=== PATIENT | female | born 1955 | race Caucasian/White ===

== ENCOUNTER 2021-02-23 10:04 | Outpatient (CLI) | payer MEDICARE, SELFPAY ==
--- NOTE | 2021-02-23 10:10 | MM_ITS ---
WS: [id number] SCREENING DIGITAL MAMMOGRAM WITH CAD HISTORY: SCREENING COMPARISON: 03/04/2015 and 03/05/2007 Bilateral CC and MLO views submitted. Computer aided detection analyzed. Breast composition: There are scattered areas of fibroglandular density. No suspicious masses, microc alcifications or architectural distortion. MM/[place] [id number] IMPRESSION: BI-RADS: 1-Negative FOLLOW UP: 1 Year Follow-up
--- NOTE | 2021-02-23 11:28 | USCV_ITS ---
Bev Eva Age: 65 Gender: F : 1955 Exam Date: 02/23/2021 12:05 Ordering Phys: Arielle Terrazas APN Technologist: Yamilet Carlos Exam Location: [facility] [place] Indication: BRUIT OF RIGHT CAROTID ARTERY Risk Factors: Previous Vascular Surgery: Right Brachial BP: / Left Brachial BP: / Right Left Velocity (cm/s) Spectral Plaque Velocity (cm/s) Spectral Plaque Syst/Diast Broadening Syst/Diast Broadening 52.60/ 13.80 Prox CCA 75.20 / 22.30 49.10/ 14.90 Mid CCA 71.80 / 24.80 48.60/ 20.40 Distal CCA 55.00 / 16.80 41.40/ 20.10 Prox ICA 35.30 / 17.70 53.00/ 22.70 Mid ICA 64.60 / 27.80 50.50/ 21.20 Distal ICA 69.70 / 28.60 58.70 ECA 55.00 1.08 ICA/CCA 0.97 Antegrade Vertebral Antegrade 31.00/ 8.50 cm/s 31.60/ 12.50 cm/s Tri Subclavian Bi 59.00 106.0 0 FINDINGS Comparison: none available. No significant elevation of systolic or diastolic velocities. Waveforms are normal. No significant amount of calcified plaque or intimal thickening identified. CONCLUSIONS Normal carotid doppler ultrasound. Dr. Barbara Grant DO (Electronically Signed) Final Date: 23 February 2021 14:29 S
== END 2021-02-23 10:05 | disposition home or self-care (01) ==
PROVIDERS: PCP Nurse Practitioner; Visit Provider Nurse Practitioner
DX: Z12.31 Encounter for screening mammogram for malignant neoplasm of breast (principal); R09.89 Other specified symptoms and signs involving the circulatory and respiratory systems
CPT/HCPCS: 77067; 93880

== ENCOUNTER 2022-08-21 10:05 | Outpatient (CLI) | payer MEDICARE, SELFPAY ==
--- NOTE | 2022-08-21 10:42 | USCV_ITS ---
Bev Eva Age: 67 Gender: F : 1955 Exam Date: 08/21/2022 10:57 Ordering Phys: Kristine Acuña SUPER[employer]OR [employer] Technologist: JOSE RAMON [place] [facility] [place]ication: RT CAROTID BRUIT Risk Factors: Previous Vascular Surgery: Right Brachial BP: / Left Brachial BP: / Right Left Velocity (cm/s) Spectral Plaque Velocity (cm/s) Spectral Plaque Syst/Diast Broadening Syst/Diast Broadening 79.50/ 26.50 Prox CCA 72.60 / 23.10 67.50/ 24.80 Mid CCA 101.70/ 35.70 48.00/ 16.70 Distal CCA 72.30 / 23.90 55.90/ 18.60 Prox ICA 33.40 / 14.50 62.10/ 27.20 Mid ICA 61.80 / 28.40 83.10/ 35.70 Distal ICA 63.20 / 22.00 72.70 ECA 38.20 1.05 ICA/CCA 0.62 Vertebral 34.20/ 11.70 cm/s 37.50/ 16.40 cm/s Subclavian 70.90 82.20 FINDINGS No changes since 2020 CONCLUSIONS Right ICA stenosis <50%. Left ICA stenosis <50%. Normal antegrade Doppler flow noted in the right vertebral artery. Normal antegrade Doppler flow noted in the left vertebral artery. Good Estrella MD (Electronically Signed) Final Date: 21 August 2022 11:58 S
== END 2022-08-21 10:06 | disposition home or self-care (01) ==
LOC: RAD 10:09
PROVIDERS: PCP Nurse Practitioner; Visit Provider Nurse Practitioner Family
DX: R09.89 Other specified symptoms and signs involving the circulatory and respiratory systems (principal); I65.23 Occlusion and stenosis of bilateral carotid arteries
CPT/HCPCS: 93880

== ENCOUNTER 2023-05-29 09:24 | Outpatient (RCR) | payer MEDICARE, SELFPAY | END 2023-06-12 23:59 | disposition home or self-care (01) | LOC: SOT 09:24 | PROVIDERS: PCP Emergency Medicine; Visit Provider Emergency Medicine | DX: S52.612D Displaced fracture of left ulna styloid process, subsequent encounter for closed fracture with routine healing (principal); S52.502D Unspecified fracture of the lower end of left radius, subsequent encounter for closed fracture with routine healing; X58.XXXD Exposure to other specified factors, subsequent encounter | CPT/HCPCS: 97022; 97110; 97140; 97165; 97530 ==

== ENCOUNTER 2023-06-13 06:00 | Outpatient (RCR) | payer MEDICARE, SELFPAY | END 2023-07-11 23:59 | disposition home or self-care (01) | LOC: SOT 06:00 | PROVIDERS: PCP Emergency Medicine; Visit Provider Emergency Medicine | DX: S52.612D Displaced fracture of left ulna styloid process, subsequent encounter for closed fracture with routine healing (principal); S52.502D Unspecified fracture of the lower end of left radius, subsequent encounter for closed fracture with routine healing; X58.XXXD Exposure to other specified factors, subsequent encounter | CPT/HCPCS: 97022; 97110; 97140 ==

== ENCOUNTER 2024-03-25 13:47 | Outpatient (CLI) | payer MEDICARE, SELFPAY ==
--- NOTE | 2024-03-25 13:49 | USCV_ITS ---
Eva Pablo Age: 69 Gender: F : 1955 Exam Date: 03/25/2024 13:56 Ordering Phys: Kristine Acuña [employer] OPERATOR [employer] Technologist: NABEEL Exam Location: [facility] [place] Indication: HISTORY: Lower extremity pain. PROCEDURES: Venous duplex imaging was performed in only the left lower extremity. The following venous structures were evaluated: common femoral vein, profunda vein, proximal portion of the greater saphenous vein, superficial femoral vein, and the popliteal vein. In addition, the posterior tibial and peroneal trunk were evaluated. FINDINGS: No evidence of DVT seen in any vessel visualized at this time. Normal 2-D Doppler and augmentation and compressibility throughout the lower extremity venous structures. Additional imaging through the proximal calf veins also reveals no thrombus. Limited evaluation of the greater saphenous vein is patent with no thrombus. CONCLUSIONS No DVT left lower extremity. Dr. Barbara Grant DO (Electronically Signed) Final Date: 25 March 2024 15:38 S
== END 2024-03-25 13:48 | disposition home or self-care (01) ==
LOC: RAD 13:48
PROVIDERS: PCP Emergency Medicine; Visit Provider Nurse Practitioner Family
DX: M79.669 Pain in unspecified lower leg (principal); L53.9 Erythematous condition, unspecified
CPT/HCPCS: 93971

== ENCOUNTER 2024-03-27 12:56 | Inpatient (IN) | payer MEDICARE, SELFPAY ==
[2024-03-27 14:01] VITALS: BP 104/68; PULSE 71; RESP 17; TEMP 36.6; O2SAT 100; BMI 21.9
[2024-03-27 16:55] LABS: Basophils % 0.5 %; Eosinophils # 0.1 10^3/uL (0.0-0.8); Eosinophils % 1.5 %; Hematocrit 35.8 % (36-47); Lymphocytes % 12.6 %; Mean Corpuscular HGB Conc 33.2 g/dL (30-55); Mean Corpuscular Hemoglobin 29.7 pg (27-33); Mean Corpuscular Volume 89.3 fl (85-98); Mean Platelet Volume 10.2 fL (7.4-10.4); Monocytes # 0.6 10^3/uL (0.2-0.9); Monocytes % 7.8 %; Neutrophils # 6.12 10^3/uL (1.8-7.7); Neutrophils % 76.1 %; Nucleated Red Blood Cells % 0 %; Platelet Count 252 10^3/cmm (157-399); Red Blood Count 4.01 10^6/uL (3.85-5.65); Red Cell Distribution Width 13.3 % (12.1-15.1); White Blood Count 8.04 10^3/uL (3.29-11.43)
[2024-03-27 17:01] LABS: Erythrocyte Sedimentation Rate 8 mm/hr (0-15)
[2024-03-27 17:07] VITALS: BP 125/55; PULSE 65; RESP 17; O2SAT 99
[2024-03-27 17:14] LABS: Alanine Aminotransferase 21 U/L (0-33); Albumin Level 4.1 g/dL (3.5-5.2); Alkaline Phosphatase 113 U/L (35-105); Anion Gap 16.8 (5-19); Aspartate Amino Transferase 26 U/L (0-32); Blood Urea Nitrogen 11 mg/dL (8-23); Calcium 9.6 mg/dL (8.5-10.5); Carbon Dioxide 27 mmol/L (22-29); Chloride 101 mmol/L (98-107); Creatinine Clr Calc Pharmacy 65.3385; Globulin 3.2 g/dL (1.3-4.6); Glucose 99 mg/dL (65-115); Osmolality Calculated 291 mOsm/kg (285-295); Potassium 3.8 mmol/L (3.5-5.1); Sodium 141 mmol/L (136-145); Total Bilirubin 0.3 mg/dL (0.15-1.2); Total Protein 7.3 g/dL (6.6-8.7)
[2024-03-27 17:30] VITALS: BP 114/65; PULSE 63; RESP 17; O2SAT 97
--- NOTE | 2024-03-27 17:36 | USR_ITS ---
PROCEDURE INFORMATION: Exam: US Duplex Left Lower Extremity Veins, Limited Exam date and time: 03/27/2024 6:57 PM Age: 69 years old Clinical indication: Edema, localized; Lower extremity, left; Additional info: Swelling TECHNIQUE: Imaging protocol: Real-time duplex ultrasound of the left extremity with 2-D stanley scale, color Doppler flow and spectral waveform analysis including responses to compression and other maneuvers (when performed) with image documentation. Limited exam focused on the left lower extremity veins. COMPARISON: CR (LOW EXM, ) 03/27/2024 5:47 PM FINDINGS: Left deep veins: Unremarkable. The common femoral, femoral, proximal profunda femoral and popliteal veins are patent without thrombus. Normal Doppler waveforms. Normal compressibility and/or augmentation response. Superficial veins: Greater saphenous vein at the saphenofemoral junction is patent without thrombus. Soft tissues: Unremarkable. US/[place] [id number] IMPRESSION: No evidence of deep vein thrombosis.
--- NOTE | 2024-03-27 17:36 | XRR_ITS ---
PROCEDURE INFORMATION: Exam: XR Left Tibia and Fibula Exam date and time: 03/27/2024 5:47 PM Age: 69 years old Clinical indication: Swelling, leg or foot TECHNIQUE: Imaging protocol: Radiologic exam of the left tibia and fibula. Views: 2 views. COMPARISON: No relevant prior studies available. FINDINGS: Bones/joints: Presumed small bone island in the intercondylar notch of the femur. Mild degenerative spurring of the tibial spines and tips of the malleoli. Soft tissues: [id number] soft swelling around the distal leg and ankle. XR/XR tibia fibula LT 2V [id number] IMPRESSION: Soft tissue swelling around the distal leg and ankle due to bland edema or cellulitis.
--- NOTE | 2024-03-27 17:41 | ED_ITS ---
HPI - Skin/Abscess/Foreign Bdy 2 General: Chief complaint: Skin/Abscess/Foreign Body Stated complaint: left leg swelling Time Seen by Provider: 03/27/24 17:04 Related Data Home Medications Medication Instructions Recorded Confirmed alprazolam 0.25 mg tablet 0.25 mg PO BID PRN Anxiety 12/22/19 ascorbic acid (vitamin C) 100 mg 100 mg PO DAILY 12/22/19 tablet (Vitamin C) cyanocobalamin (vitamin B-12) 100 100 mcg PO DAILY 12/22/19 mcg tablet (Vitamin B-12) duloxetine 30 mg capsule,delayed 30 mg PO DAILY 12/22/19 release gabapentin 300 mg capsule 300 mg PO DAILY 12/22/19 levothyroxine 88 mcg tablet 88 mcg PO DAILY 12/22/19 multivitamin 1 cap PO DAILY 12/22/19 tramadol 50 mg tablet 50 mg PO BID 12/22/19 Allergies Allergy/AdvReac Type Severity Reaction Status Date / Time Penicillins Allergy Unknown Verified 03/27/24 14:06 PFS ED 2 PFSH: Family History (Updated 12/22/19 @ 09:39 by Nicholas Rivas LPN) Grandfather Family history of colon cancer Grandmother Family history of colon cancer Other Family history of CVA Family history of heart disease Course 2 Vital Signs: Vital signs: Vital Signs Temperature 97.9 F 03/27/24 14:01 Pulse Rate 63 03/27/24 17:30 Respiratory Rate 17 03/27/24 17:30 Blood Pressure 114/65 03/27/24 17:30 Pulse Oximetry 97 03/27/24 17:30 Oxygen Delivery Me thod Room Air 03/27/24 17:30 MDM - Skin/Abscess/Foreign Bdy Lab Data 03/27/24 16:44 03/27/24 16:44 Laboratory Results WBC 8.04 10^3/uL (3.29-11.43) 03/27/24 16:44 RBC 4.01 10^6/uL (3.85-5.65) 03/27/24 16:44 Hgb 11.90 g/dL (11.27-16.99) 03/27/24 16:44 Hct 35.8 % (36-47) L 03/27/24 16:44 MCV 89.3 fl (85-98) 03/27/24 16:44 MCH 29.7 pg (27-33) 03/27/24 16:44 MCHC 33.2 g/dL (30-55) 03/27/24 16:44 RDW 13.3 % (12.1-15.1) 03/27/24 16:44 Plt Count 252 10^3/cmm (157-399) 03/27/24 16:44 MPV 10.2 fL (7.4-10.4) 03/27/24 16:44 Neut % (Auto) 76.1 % 03/27/24 16:44 Lymph % (Auto) 12.6 % 03/27/24 16:44 [place] % (Auto) 7.8 % 03/27/24 16:44 Eos % (Auto) 1.5 % 03/27/24 16:44 Baso % (Auto) 0.5 % 03/27/24 16:44 Neut # (Auto) 6.12 10^3/uL (1.8-7.7) 03/27/24 16:44 Lymph # (Auto) 1.0 10^3/uL (0.8-4.8) 03/27/24 16:44 [place] # (Auto) 0.6 10^3/uL (0.2-0.9) 03/27/24 16:44 Eos # (Auto) 0.1 10^3/uL (0.0-0.8) 03/27/24 16:44 Baso # (Auto) 0.0 10^3/uL (0.0-0.1) 03/27/24 16:44 Nucleated RBC % (auto) 0 % 03/27/24 16:44 Nucleated RBCs # 0.0 /100WBC 03/27/24 16:44 ESR 8 mm/hr (0-15) 03/27/24 16:44 Sodium 141 mmol/L (136-145) 03/27/24 16:44 Potassium 3.8 mmol/L (3.5-5.1) 03/27/24 16:44 Chloride 101 mmol/L (98-107) 03/27/24 16:44 Carbon Dioxide 27 mmol/L (22-29) 03/27/24 16:44 Anion Gap 16.8 (5-19) 03/27/24 16:44 BUN 11 mg/dL (8-23) 03/27/24 16:44 Creatinine 0.7 mg/dL (0.5-0.9) 03/27/24 16:44 GFR Calculation 83.0 mL/min (90-130) L 03/27/24 16:44 Glucose 99 mg/dL (65-115) 03/27/24 16:44 Calculated Osmolality 291 mOsm/kg (285-295) 03/27/24 16:44 Calcium 9.6 mg/dL (8.5-10.5) 03/27/24 16:44 Total Bilirubin 0.3 mg/dL (0.15-1.2) 03/27/24 16:44 AST 26 U/L (0-32) 03/27/24 16:44 ALT 21 U/L (0-33) 03/27/24 16:44 Alkaline Phosphatase 113 U/L (35-105) H 03/27/24 16:44 C-Reactive Protein 98.0 mg/L (0.0-4.9) H 03/27/24 16:44 Total Protein 7.3 g/dL (6.6-8.7) 03/27/24 16:44 Albumin 4.1 g/dL (3.5-5.2) 03/27/24 16:44 Globulin 3.2 g/dL (1.3-4.6) 03/27/24 16:44 Discharge Plan Discharge Condition: Stable Prescriptions: No Action cyanocobalamin (vitamin B-12) [Vitamin B-12] 100 mcg Tablet 100 mcg PO DAILY tramadol 50 mg tablet 50 mg PO BID levothyroxine 88 mcg tablet 88 mcg PO DAILY alprazolam 0.25 mg tablet 0.25 mg PO BID PRN (Reason: Anxiety) Vitamin C 100 mg Tablet 100 mg PO DAILY gabapentin 300 mg capsule 300 mg PO DAILY multivitamin Capsule 1 cap PO DAILY duloxetine 30 mg capsule,delayed release(DR/EC) 30 mg PO DAILY Referrals: Acuña,SOFIYA Carmona [Primary Care Provider] - Coding Level of Care Code ED Physics And Astronomy Professor for Saman Green
--- NOTE | 2024-03-27 17:44 | P.HP_ITS ---
Providers/Chief Complaint 2 Primary Care Provider: SOFIYA Valentino Chief Complaint: left leg swelling History of Present Illness Eva Pablo is a 69 year old female with a past medical history of ovarian cancer, hypothyroidism, who presents [facility] due to left lower extremity swelling, erythema, tenderness. Patient tells me that over the weekend she had the flu she was quite sick and remained bedbound, she tells me that she got better from the flu, but she started developing swelling and erythema of her left lower extremity. She saw her primary care provider who ordered a venous ultrasound which was negative for DVT, but there was concerns for cellulitis she was put on Bactrim. Despite this she started developing left lower extremity erythema, swelling, tenderness extending from the midfoot all the way up to now her knee with areas of streaking up to the knee, she does have a area of psoriasis on the dorsal aspect of the foot, that is pruritic, with a couple of breaks in the skin, denies any animal bites, denies any bug bites, no fevers, no chills Review of Systems 2 Card: Denies: chest pain Resp: Denies: dyspnea GI: Denies: abdominal pain Skin/Breast: Reports: rash; Denies: pruritus Psych: Denies: anxiety Medications/Allergies Home Medications Medication Instructions Recorded Confirmed Last Taken Type alprazolam 0.25 mg tablet 0.25 mg PO BID PRN Anxiety 12/22/19 Unknown History ascorbic acid (vitamin C) 100 mg 100 mg PO DAILY 12/22/19 Unknown History tablet (Vitamin C) cyanocobalamin (vitamin B-12) 100 100 mcg PO DAILY 12/22/19 Unknown History mcg tablet (Vitamin B-12) duloxetine 30 mg capsule,delayed 30 mg PO DAILY 12/22/19 Unknown History release gabapentin 300 mg capsule 300 mg PO DAILY 12/22/19 Unknown History levothyroxine 88 mcg tablet 88 mcg PO DAILY 12/22/19 Unknown History multivitamin 1 cap PO DAILY 12/22/19 Unknown History tramadol 50 mg tablet 50 mg PO BID 12/22/19 Unknown History Allergies Allergy/AdvReac Type Severity Reaction Status Date / Time Penicillins Allergy Unknown Verified 03/27/24 14:06 PFSH Acute 2 PFSH: Medical History (Updated 03/27/24 @ 17:47 by Frankie Yap MD) History of ovarian cancer History of hypercholesterolemia History of diverticulosis History of thyroid disease Surgical History (Updated 03/27/24 @ 17:45 by Frankie Yap MD) History of total hysterectomy with bilateral salpingo-oophorectomy (BSO) History of resection of small bowel History of appendectomy History of tonsillectomy Family History (Updated 12/22/19 @ 09:39 by Nicholas Rivas LPN) Grandfather Family history of colon cancer Grandmother Family history of colon cancer Other Family history of CVA Family history of heart disease Social History (Updated 03/27/24 @ 17:45 by Frankie Yap MD) Smoking and tobacco/nicotine status: never used tobacco/nicotine Alcohol intake: never Substance/Drug Use: never Vitals/I&O/Wt Last Vital Signs Temp 97.9 F 03/27/24 14:01 Pulse 63 03/27/24 17:30 Resp 17 03/27/24 17:30 BP 114/65 03/27/24 17:30 Pulse Ox 97 03/27/24 17:30 O2 Del Method Room Air 03/27/24 17:30 Weight last 48 hrs Weight 63.503 kg Physical Exam 2 Const: COMMON NORMALS: no acute distress and patient oriented x3 Resp: COMMON NORMALS: normal respiratory effort, No retractions, No use of accessory muscles and clear to auscultation bilaterally AUSCULTATION: clear to auscultation bilaterally Cardio: COMMON NORMALS: no JVD, regular rate, regular rhythm, S1 normal heart sound present and S2 normal heart sound present RATE: regular rate RHYTHM: regular rhythm HEART SOUNDS: S1 normal heart sound present and S2 normal heart sound present GI: COMMON NORMALS: Normal to inspection, nondistended, normoactive bowel sounds present, Soft to palpation and non-tender Extremity: COMMON NORMALS: no pedal edema Neuro: COMMON NORMALS: patient oriented x3 Psych: COMMON NORMALS: mental status grossly normal Skin: NARRATIVE SKIN EXAM: erythema of left lower extremity, irregular border, with streaking up to knee, 1+ pitting edema Data 03/27/24 16:44 03/27/24 16:44 A&P Assessment and plan (1) Cellulitis of leg: Plan Cellulitis of the left leg -Obtain blood cultures -ESR -Pro-[place]ell -X-ray of left leg -Repeat venous ultrasound -Start vancomycin -Aztreonam -Monitor clinical site closely -Full code -Lovenox for DVT prophylaxis Attestations 2 Medical Necessity Statement*: patient requires hospitalization for cellulites, inpatient , greater than 2 midnights and High MDM includes number and complexity of problems actively addressed during encounter, amount and/or complexity of data reviewed/ordered and described risk of complication, morbidity or mortality of management as documented Diagnoses Cellulitis of leg L03.119
--- NOTE | 2024-03-27 17:49 | PHA.VACGOAL ---
Vancomycin Goal - Goal Vancomycin Goal:: 10-15 mg/L Vancomycin Indication:: Other - Therapy Current therapy:: Other Antibiotic (AZTREONAM) Day of therpy:: Day 1 of [] Actual body weight (kg): 140 lb - Data Labs: WBC 8.04 10^3/uL (3.29-11.43) 03/27/24 16:44 RBC 4.01 10^6/uL (3.85-5.65) 03/27/24 16:44 Hgb 11.90 g/dL (11.27-16.99) 03/27/24 16:44 Hct 35.8 % (36-47) L 03/27/24 16:44 MCV 89.3 fl (85-98) 03/27/24 16:44 MCH 29.7 pg (27-33) 03/27/24 16:44 MCHC 33.2 g/dL (30-55) 03/27/24 16:44 RDW 13.3 % (12.1-15.1) 03/27/24 16:44 Sodium 141 mmol/L (136-145) 03/27/24 16:44 Potassium 3.8 mmol/L (3.5-5.1) 03/27/24 16:44 Chloride 101 mmol/L (98-107) 03/27/24 16:44 Carbon Dioxide 27 mmol/L (22-29) 03/27/24 16:44 Anion Gap 16.8 (5-19) 03/27/24 16:44 BUN 11 mg/dL (8-23) 03/27/24 16:44 Creatinine 0.7 mg/dL (0.5-0.9) 03/27/24 16:44 GFR Calculation 83.0 mL/min (90-130) L 03/27/24 16:44 Last dialysis session:: N/A Treatment plan:: new consult Regimen:: LOADING DOSE OF 1000 MG X 1 MAINTENANCE DOSE OF 750 MG Q12H Follow up:: WILL MONITOR AND CONTINUE TO FOLLOW UP DAILY
--- NOTE | 2024-03-27 18:01 | ED_ITS ---
HPI - Skin/Abscess/Foreign Bdy 2 General: Chief complaint: Skin/Abscess/Foreign Body Stated complaint: left leg swelling Time Seen by Provider: 03/27/24 17:04 Source: patient Mode of arrival: ambulatory Limitations: no limitations History of Present Illness: Patient is a 69-year-old female who presents to the emergency department with worsening left lower extremity swelling and pain evolving over the past few days. Over the weekend she dealt with a flulike illness, states she was in bed for a few days. Noticed the swelling on Saturday, subsequently went to primary care and had an ultrasound that demonstrated no signs of a DVT. She was started on Bactrim at that time, has had 3 days worth and states that the swelling has gotten worse, however now she is having quite a bit of redness to the foot and distal left lower extremity with red streaking up to her knee. She is denying any fevers, nausea or vomiting, shortness of breath, or other systemic signs of illness. Vitals are stable at this time. MD complaint: other (Left lower extremity pain swelling and redness) Onset (ago): day(s) Location: LLE Severity: severe Relieving factors: none Context: recent illness and recent antibiotic Associated symptoms: Deny chills, fever(s), nausea or vomiting Treatments prior to arrival: antibiotic Related Data Home Medications Medication Instructions Recorded Confirmed alprazolam 0.25 mg tablet 0.25 mg PO BID PRN Anxiety 12/22/19 ascorbic acid (vitamin C) 100 mg 100 mg PO DAILY 12/22/19 tablet (Vitamin C) cyanocobalamin (vitamin B-12) 100 100 mcg PO DAILY 12/22/19 mcg tablet (Vitamin B-12) duloxetine 30 mg capsule,delayed 30 mg PO DAILY 12/22/19 release gabapentin 300 mg capsule 300 mg PO DAILY 12/22/19 levothyroxine 88 mcg tablet 88 mcg PO DAILY 12/22/19 multivitamin 1 cap PO DAILY 12/22/19 tramadol 50 mg tablet 50 mg PO BID 12/22/19 Allergies Allergy/AdvReac Type Severity Reaction Status Date / Time Penicillins Allergy Unknown Verified 03/27/24 14:06 Review of Systems 2 General: Reports: 10 or more systems reviewed and unremarkable except in HPI and below Const: Denies: fever(s) or chills Card: Denies: chest pain Resp: Denies: dyspnea or productive cough GI: Denies: abdominal pain, nausea, vomiting or diarrhea : Denies: flank pain Musc: Reports: extremity pain (Left lower) and extremity swelling (Left lower); Denies: neck pain, back pain, joint pain, joint swelling, joint redness, joint warmth, limited range of motion or muscle weakness Skin/Breast: Reports: erythema Neuro: Denies: headache(s), numbness in extremities or weakness in extremities [place]/Lymph: Reports: other (Red streaking of left lower extremity) PFSH ED 2 PFSH: Medical History History of ovarian cancer History of hypercholesterolemia History of diverticulosis History of thyroid disease Surgical History History of total hysterectomy with bilateral salpingo-oophorectomy (BSO) History of resection of small bowel History of appendectomy History of tonsillectomy Family History Grandfather Family history of colon cancer Grandmother Family history of colon cancer Other Family history of CVA Family history of heart disease Social History Smoking and tobacco/nicotine status: never used tobacco/nicotine Alcohol intake: never Substance/Drug Use: never Physical Exam 2 Const: COMMON NORMALS: no acute distress, average body habitus, patient oriented x3, no limitations, healthy appearing, alert and well nourished HENMT: COMMON NORMALS: normocephalic and atraumatic HEAD & SCALP: n ormocephalic and atraumatic Neck/C-Spine: COMMON NORMALS: full ROM and no meningeal signs Resp: COMMON NORMALS: normal respiratory effort, No retractions, No use of accessory muscles and clear to auscultation bilaterally AUSCULTATION: clear to auscultation bilaterally Cardio: COMMON NORMALS: regular rate, regular rhythm, S1 normal heart sound present, S2 normal heart sound present, No gallops present (Cardio), No murmurs present (Cardio) and No rub (Cardio) RATE: regular rate RHYTHM: regular rhythm HEART SOUNDS: S1 normal heart sound present and S2 normal heart sound present Extremity: NARRATIVE EXTREMITY EXAM: Overlying skin changes to distal left lower extremity involving the circumferential distal milian and dorsal left foot. Psoriatic changes overlying the left foot, however there does appear to be acute broadening and erythema just proximal to the psoriatic changes. 2+ pitting edema senior care up the left lower extremity involving the forefoot as well. There does appear to be some red streaking that terminates at the anterior left knee. Pulses difficult to palpate distally. Some minor left calf tenderness to palpation, negative Homans' sign. Neuro: COMMON NORMALS: patient oriented x3, moves all extremities, no focal motor deficits and no sensory deficits noted SENSORIUM/ORIENTATION: Yes alert MENINGEAL SIGNS: Yes no meningeal signs Skin: NARRATIVE SKIN EXAM: See extremity exam Course 2 Vital Signs: Vital signs: Vital Signs Temperature 97.9 F 03/27/24 14:01 Pulse Rate 63 03/27/24 17:30 Respiratory Rate 17 03/27/24 17:30 Blood Pressure 114/65 03/27/24 17:30 Pulse Oximetry 97 03/27/24 17:30 Oxygen Delivery Me thod Room Air 03/27/24 17:30 MDM - Skin/Abscess/Foreign Bdy Medicial Decision Making Patient is having worsening left lower extremity symptoms since being started on Bactrim few days ago per primary care. Ultrasound was negative for DVT at that time, and states that despite outpatient treatment with antibiotics her symptoms have continued to worsen. New to report were red streaking and worsening erythematous changes. Basic lab work showing normal white count, CRP of 98. Her vitals are stable. Due to failing outpatient treatment, she was started on IV Vanco and consulted hospitalist, Dr Yap, who kindly accepted the patient to the hospital for further workup and IV antibiotics. Dr. Whitt putting in admit orders at this time. Lab Data 03/27/24 16:44 03/27/24 16:44 Laboratory Results WBC 8.04 10^3/uL (3.29-11.43) 03/27/24 16:44 RBC 4.01 10^6/uL (3.85-5.65) 03/27/24 16:44 Hgb 11.90 g/dL (11.27-16.99) 03/27/24 16:44 Hct 35.8 % (36-47) L 03/27/24 16:44 MCV 89.3 fl (85-98) 03/27/24 16:44 MCH 29.7 pg (27-33) 03/27/24 16:44 MCHC 33.2 g/dL (30-55) 03/27/24 16:44 RDW 13.3 % (12.1-15.1) 03/27/24 16:44 Plt Count 252 10^3/cmm (157-399) 03/27/24 16:44 MPV 10.2 fL (7.4-10.4) 03/27/24 16:44 Neut % (Auto) 76.1 % 03/27/24 16:44 Lymph % (Auto) 12.6 % 03/27/24 16:44 [place] % (Auto) 7.8 % 03/27/24 16:44 Eos % (Auto) 1.5 % 03/27/24 16:44 Baso % (Auto) 0.5 % 03/27/24 16:44 Neut # (Auto) 6.12 10^3/uL (1.8-7.7) 03/27/24 16:44 Lymph # (Auto) 1.0 10^3/uL (0.8-4.8) 03/27/24 16:44 [place] # (Auto) 0.6 10^3/uL (0.2-0.9) 03/27/24 16:44 Eos # (Auto) 0.1 10^3/uL (0.0-0.8) 03/27/24 16:44 Baso # (Auto) 0.0 10^3/uL (0.0-0.1) 03/27/24 16:44 Nucleated RBC % (auto) 0 % 03/27/24 16:44 Nucleated RBCs # 0.0 /100WBC 03/27/24 16:44 ESR 8 mm/hr (0-15) 03/27/24 16:44 Sodium 141 mmol/L (136-145) 03/27/24 16:44 Potassium 3.8 mmol/L (3.5-5.1) 03/27/24 16:44 Chloride 101 mmol/L (98-107) 03/27/24 16:44 Carbon Dioxide 27 mmol/L (22-29) 03/27/24 16:44 Anion Gap 16.8 (5-19) 03/27/24 16:44 BUN 11 mg/dL (8-23) 03/27/24 16:44 Creatinine 0.7 mg/dL (0.5-0.9) 03/27/24 16:44 GFR Calculation 83.0 mL/min (90-130) L 03/27/24 16:44 Glucose 99 mg/dL (65-115) 03/27/24 16:44 Calculated Osmolality 291 mOsm/kg (285-295) 03/27/24 16:44 Calcium 9.6 mg/dL (8.5-10.5) 03/27/24 16:44 Total Bilirubin 0.3 mg/dL (0.15-1.2) 03/27/24 16:44 AST 26 U/L (0-32) 03/27/24 16:44 ALT 21 U/L (0-33) 03/27/24 16:44 Alkaline Phosphatase 113 U/L (35-105) H 03/27/24 16:44 C-Reactive Protein 98.0 mg/L (0.0-4.9) H 03/27/24 16:44 Total Protein 7.3 g/dL (6.6-8.7) 03/27/24 16:44 Albumin 4.1 g/dL (3.5-5.2) 03/27/24 16:44 Globulin 3.2 g/dL (1.3-4.6) 03/27/24 16:44 No radiology studies performed this visit Discharge Plan Discharge Patient Disposition: Placed in Observation Clinical Impression: Cellulitis Coding Level of Care Code ED Light Rail Operator for Saman Green
[2024-03-27 18:17] LABS: Lactic Sepsis W/Reflex 1.2 mmol/L (0.5-2.2)
[2024-03-27 18:28] LABS: NT Pro B Type Natriuretic Pept 159 pg/mL (0-125); Procalcitonin 0.07 ng/mL (0-0.5); Thyroid Stimulating Hormone 2.56 uIU/mL (0.27-4.20)
[2024-03-27] MEDS: enoxaparin 40 mg/0.4 mL Syringe SUBCUT (19:08)
[2024-03-27] MEDS: pantoprazole 40 mg SDV IVP (19:08)
[2024-03-27] MEDS: VANCOMYCIN ADD-Vantage 1,000 MG in 0.9% NaCl ADD-Vantage 250 ML 250 MG IV (19:08)
[2024-03-27 21:01] VITALS: BP 102/55; PULSE 72; O2SAT 99
[2024-03-27 21:17] VITALS: BP 105/52; PULSE 74; RESP 17; TEMP 36.6; O2SAT 100
[2024-03-27] MEDS: aztreonam 1,000 MG in sodium chloride 0.9% (plus) 50 ML 100 MG IV (21:17)
[2024-03-27 21:46] LABS: Estmated Average Glucose 103; Hemoglobin A1C 5.2 % (4.0-6.0)
[2024-03-28] VITALS (7 sets, daily range): BP systolic 92–108; BP diastolic 55–68; PULSE 59–94; RESP 14–17; TEMP 36.2–36.8; O2SAT 94–98
[2024-03-28 05:41] LABS: Basophils % 0.7 %; Eosinophils # 0.1 10^3/uL (0.0-0.8); Eosinophils % 2.2 %; Hematocrit 32.3 % (36-47); Lymphocytes # 0.6 10^3/uL (0.8-4.8); Lymphocytes % 10.3 %; Mean Corpuscular HGB Conc 32.2 g/dL (30-55); Mean Corpuscular Hemoglobin 29.1 pg (27-33); Mean Corpuscular Volume 90.5 fl (85-98); Mean Platelet Volume 9.8 fL (7.4-10.4); Monocytes # 0.4 10^3/uL (0.2-0.9); Monocytes % 7.3 %; Neutrophils # 4.59 10^3/uL (1.8-7.7); Neutrophils % 77.5 %; Nucleated Red Blood Cells % 0 %; Platelet Count 229 10^3/cmm (157-399); Red Blood Count 3.57 10^6/uL (3.85-5.65); Red Cell Distribution Width 13.3 % (12.1-15.1); White Blood Count 5.92 10^3/uL (3.29-11.43)
[2024-03-28] MEDS: aztreonam 1,000 MG in sodium chloride 0.9% (plus) 50 ML 100 MG IV ×2 (05:46→18:38)
[2024-03-28 06:03] LABS: Anion Gap 12.5 (5-19); Blood Urea Nitrogen 9 mg/dL (8-23); Calcium 8.9 mg/dL (8.5-10.5); Carbon Dioxide 27 mmol/L (22-29); Chloride 103 mmol/L (98-107); Creatinine Clr Calc Pharmacy 67.0493; Glucose 142 mg/dL (65-115); Osmolality Calculated 287 mOsm/kg (285-295); Potassium 4.5 mmol/L (3.5-5.1); Sodium 138 mmol/L (136-145)
[2024-03-28] MEDS: VANCOMYCIN ADD-Vantage 750 MG in 0.9% NaCl ADD-Vantage 250 ML 250 MG IV ×2 (06:18→17:13)
[2024-03-28] MEDS: flu vacc pf 24-25 (6 mos+) SYRINGE 45 MCG IM (09:06)
[2024-03-28] MEDS: pneumococcal (23 valent) SDV 0.5 mL IM (09:11)
[2024-03-28] MEDS: levothyroxine 112 mcg Tablet PO (10:31)
[2024-03-28] MEDS: duloxetine 60 mg Capsule PO (10:31)
[2024-03-28] MEDS: gabapentin 300 mg Capsule PO (10:32)
--- NOTE | 2024-03-28 14:45 | P.PN_ITS ---
Subjective 2 Subjective: Patient was seen this morning, her swelling and erythema is improving, no fevers, no chills Vitals/I&O/Wt Last Vital Signs Temp 97.2 F L 03/28/24 12:00 Pulse 67 03/28/24 12:00 Resp 16 03/28/24 12:00 BP 100/60 03/28/24 12:00 Pulse Ox 97 03/28/24 12:00 O2 Del Method Room Air 03/28/24 12:00 03/27/24 03/28/24 03/28/24 22:59 06:59 14:59 Intake Total 420 / 420 650 / 1070 850 / 850 Balance 420 / 420 650 / 1070 850 / 850 Weight last 48 hrs Weight 67.585 kg Weight 67.614 kg Weight 63.503 kg Physical Exam 2 Const: COMMON NORMALS: no acute distress and patient oriented x3 Resp: COMMON NORMALS: normal respiratory effort, No retractions, No use of accessory muscles and clear to auscultation bilaterally AUSCULTATION: clear to auscultation bilaterally Cardio: COMMON NORMALS: regular rate, regular rhythm, S1 normal heart sound present and S2 normal heart sound present RATE: regular rate RHYTHM: r egular rhythm HEART SOUNDS: S1 normal heart sound present and S2 normal heart sound present GI: COMMON NORMALS: Normal to inspection, nondistended, normoactive bowel sounds present and non-tender Extremity: NARRATIVE EXTREMITY EXAM: 1+ edema, erythema lower extremity, malik lar compared to yesterday Neuro: COMMON NORMALS: patient oriented x3 Psych: COMMON NORMALS: mental status grossly normal Data 03/28/24 05:20 03/28/24 05:20 Micro: Microbiology 03/27/24 18:17 Blood Culture - Preliminary Blood SPECIMEN COLLECTED 03/27/24 17:40 Blood Culture - Preliminary Blood SPECIMEN COLLECTED A&P Assessment and plan (1) Cellulitis of leg: Plan Cellulitis of the left leg -Obtain blood cultures -ESR 8 -Pro-[place] within normal limits ? CRP 98 -X-ray of left leg XR/XR tibia fibula LT 2V [id number] IMPRESSION: Soft tissue swelling around the distal leg and ankle due to bland edema or cellulitis. -Repeat venous ultrasound, no acute DVT - vancomycin -Aztreonam -Monitor clinical site closely -Full code -Lovenox for DVT prophylaxis Plan for today continue IV antibiotics Attestations 2 Medical Necessity Statement*: Patient requires hospitalization for cellulitis of left leg Diagnoses Cellulitis of leg L03.119
[2024-03-28] MEDS: pantoprazole 40 mg SDV IVP (17:14)
[2024-03-28] MEDS: enoxaparin 40 mg/0.4 mL Syringe SUBCUT (17:14)
[2024-03-29 04:00] VITALS: BP 96/68; PULSE 59; RESP 15; TEMP 36.6; O2SAT 95
[2024-03-29 05:28] LABS: Basophils % 0.8 %; Eosinophils # 0.1 10^3/uL (0.0-0.8); Eosinophils % 2.5 %; Lymphocytes # 0.7 10^3/uL (0.8-4.8); Lymphocytes % 13.5 %; Mean Corpuscular Hemoglobin 29.7 pg (27-33); Mean Corpuscular Volume 92.8 fl (85-98); Mean Platelet Volume 9.9 fL (7.4-10.4); Monocytes # 0.4 10^3/uL (0.2-0.9); Monocytes % 8.2 %; Neutrophils # 3.82 10^3/uL (1.8-7.7); Neutrophils % 72.5 %; Nucleated Red Blood Cells % 0 %; Platelet Count 271 10^3/cmm (157-399); Red Blood Count 3.77 10^6/uL (3.85-5.65); Red Cell Distribution Width 13.4 % (12.1-15.1); White Blood Count 5.26 10^3/uL (3.29-11.43)
[2024-03-29] MEDS: aztreonam 1,000 MG in sodium chloride 0.9% (plus) 50 ML 100 MG IV ×2 (05:39→17:53)
[2024-03-29 05:51] LABS: Anion Gap 13.4 (5-19); Blood Urea Nitrogen 8 mg/dL (8-23); Calcium 9.5 mg/dL (8.5-10.5); Carbon Dioxide 28 mmol/L (22-29); Chloride 108 mmol/L (98-107); Creatinine Clr Calc Pharmacy 68.2659; Glucose 91 mg/dL (65-115); Osmolality Calculated 296 mOsm/kg (285-295); Potassium 5.4 mmol/L (3.5-5.1); Sodium 144 mmol/L (136-145)
[2024-03-29] MEDS: VANCOMYCIN ADD-Vantage 750 MG in 0.9% NaCl ADD-Vantage 250 ML 250 MG IV (06:18)
[2024-03-29 07:39] VITALS: BP 96/64; PULSE 56; RESP 15; TEMP 36.8; O2SAT 98
[2024-03-29] MEDS: duloxetine 60 mg Capsule PO (08:05)
[2024-03-29] MEDS: gabapentin 300 mg Capsule PO (08:05)
[2024-03-29] MEDS: levothyroxine 112 mcg Tablet PO (08:05)
[2024-03-29 10:06] LABS: Anion Gap 15.4 (5-19); Blood Urea Nitrogen 7 mg/dL (8-23); Calcium 9.3 mg/dL (8.5-10.5); Carbon Dioxide 25 mmol/L (22-29); Chloride 102 mmol/L (98-107); Creatinine Clr Calc Pharmacy 68.2659; Glucose 109 mg/dL (65-115); Osmolality Calculated 285 mOsm/kg (285-295); Potassium 4.4 mmol/L (3.5-5.1); Sodium 138 mmol/L (136-145)
[2024-03-29 11:52] VITALS: BP 103/54; PULSE 60; RESP 15; TEMP 36.8; O2SAT 98
--- NOTE | 2024-03-29 13:19 | P.PN_ITS ---
Subjective 2 Subjective: Patient was seen this morning, she is able to ambulate her erythema and her swelling is improving, no fevers Vitals/I&O/Wt Last Vital Signs Temp 98.2 F 03/29/24 11:52 Pulse 60 03/29/24 11:52 Resp 15 03/29/24 11:52 BP 103/54 03/29/24 11:52 Pulse Ox 98 03/29/24 11:52 O2 Del Method Room Air 03/29/24 11:52 03/28/24 03/29/24 03/29/24 22:59 06:59 14:59 Intake Total 1040 / 1890 50 / 1940 855 / 855 Balance 1040 / 1890 50 / 1940 855 / 855 Weight last 48 hrs Weight 70.488 kg Weight 67.585 kg Weight 67.614 kg Weight 63.503 kg Physical Exam 2 Const: COMMON NORMALS: no acute distress and patient oriented x3 Resp: COMMON NORMALS: normal respiratory effort, No retractions, No use of accessory muscles and clear to auscultation bilaterally AUSCULTATION: clear to auscultation bilaterally Cardio: COMMON NORMALS: regular rate, regular rhythm, S1 normal heart sound present and S2 normal heart sound present RATE: regular rate RHYTHM: r egular rhythm HEART SOUNDS: S1 normal heart sound present and S2 normal heart sound present GI: COMMON NORMALS: Normal to inspection, nondistended, normoactive bowel sounds present and non-tender Extremity: COMMON NORMALS: no pedal edema Neuro: COMMON NORMALS: patient oriented x3 Psych: COMMON NORMALS: mental status grossly normal Data 03/29/24 04:36 03/29/24 09:45 Micro: Microbiology 03/27/24 18:17 Blood Culture - Preliminary Blood NEGATIVE TO DATE 03/27/24 17:40 Blood Culture - Preliminary Blood NEGATIVE TO DATE A&P Assessment and plan (1) Cellulitis of leg: Plan Cellulitis of the left leg -Obtain blood cultures -ESR 8 -Pro-[place] within normal limits ? CRP 98 -X-ray of left leg XR/XR tibia fibula LT 2V [id number] IMPRESSION: Soft tissue swelling around the distal leg and ankle due to bland edema or cellulitis. -Repeat venous ultrasound, no acute DVT - vancomycin -Aztreonam -Monitor clinical site closely -Full code -Lovenox for DVT prophylaxis Plan for today continue IV antibiotics Attestations 2 Medical Necessity Statement*: Plan for today continue IV antibiotics, for cellulitis Diagnoses Cellulitis of leg L03.119
[2024-03-29 15:14] VITALS: BP 94/57; PULSE 71; RESP 15; TEMP 36.9; O2SAT 97
[2024-03-29] MEDS: pantoprazole 40 mg SDV IVP (16:50)
[2024-03-29] MEDS: enoxaparin 40 mg/0.4 mL Syringe SUBCUT (16:50)
[2024-03-29] MEDS: VANCOMYCIN ADD-Vantage 1,000 MG in 0.9% NaCl ADD-Vantage 250 ML 250 MG IV (16:55)
[2024-03-29 19:52] VITALS: BP 104/55; PULSE 59; RESP 19; TEMP 36.8; O2SAT 95
[2024-03-29 23:37] VITALS: BP 102/60; PULSE 57; RESP 16; TEMP 36.8; O2SAT 96
[2024-03-30 04:00] VITALS: BP 139/57; PULSE 58; RESP 20; TEMP 36.7; O2SAT 96
[2024-03-30 05:03] LABS: Basophils % 0.6 %; Eosinophils # 0.1 10^3/uL (0.0-0.8); Eosinophils % 2.2 %; Lymphocytes # 0.7 10^3/uL (0.8-4.8); Lymphocytes % 13.1 %; Mean Corpuscular HGB Conc 31.4 g/dL (30-55); Mean Corpuscular Hemoglobin 29.3 pg (27-33); Mean Corpuscular Volume 93.3 fl (85-98); Mean Platelet Volume 9.2 fL (7.4-10.4); Monocytes # 0.5 10^3/uL (0.2-0.9); Monocytes % 8.5 %; Neutrophils # 3.94 10^3/uL (1.8-7.7); Neutrophils % 72.3 %; Nucleated Red Blood Cells % 0 %; Platelet Count 282 10^3/cmm (157-399); Red Blood Count 3.75 10^6/uL (3.85-5.65); Red Cell Distribution Width 13.2 % (12.1-15.1); White Blood Count 5.44 10^3/uL (3.29-11.43)
[2024-03-30 05:29] LABS: Anion Gap 13.8 (5-19); Blood Urea Nitrogen 8 mg/dL (8-23); Calcium 9.4 mg/dL (8.5-10.5); Carbon Dioxide 27 mmol/L (22-29); Chloride 108 mmol/L (98-107); Creatinine Clr Calc Pharmacy 69.1783; Glucose 112 mg/dL (65-115); Osmolality Calculated 297 mOsm/kg (285-295); Potassium 4.8 mmol/L (3.5-5.1); Sodium 144 mmol/L (136-145)
[2024-03-30] MEDS: aztreonam 1,000 MG in sodium chloride 0.9% (plus) 50 ML 100 MG IV (05:33)
[2024-03-30] MEDS: VANCOMYCIN ADD-Vantage 1,000 MG in 0.9% NaCl ADD-Vantage 250 ML 250 MG IV (06:01)
[2024-03-30 07:44] VITALS: BP 93/59; PULSE 49; RESP 18; TEMP 36.9; O2SAT 97
[2024-03-30] MEDS: levothyroxine 112 mcg Tablet PO (07:59)
[2024-03-30] MEDS: duloxetine 60 mg Capsule PO (07:59)
[2024-03-30] MEDS: gabapentin 300 mg Capsule PO (07:59)
--- NOTE | 2024-03-30 09:08 | PC.CHAP ---
Pastoral Care Encounter/Spiritual Assessment Type of Contact [] Declined wool presser visit [] Patient/Family/Request visit [] Outpatient visit [] Follow-up visit [] Physician referral [] Code/Alert [x] Routine visit [] Staff referral [] Actively dying [] Patient sleeping [] Family support [] [] Out of room [] Palliative care [] [] Receiving care in room [] Pre-surgical visit [] Trauma [] Long length of stay [] ICU visit [] Other: Relational/Emotional Strength [] Patient feels connected with others/family/visitors/staff [] Distress [] Loneliness/isolation [] Abandonment Spirituality of Patient [x] Person of Megan [] Attends Rastafarian of their Megan [x] Believes in Prayer [] Reads Bible or Temple materials [] 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 [x] Prayer [x] Active listening [] Non-anxious presence [] Spiritual/emotional support [] Crisis/trauma care [] Spiritual counseling [] Bereavement support [] Provided bereavement packet [x] Provided Bible/devotional materials [] Provided toy/stuffed animal, coloring book to patient or family member [] Provided Communion [] Anointing/[place] [] Salvation [x] Completed spiritual assessment [] Other: Impact on Illness or Injury [] Angry [] Fearful [] Anxious [] Often cries [] Exhaustion [] Unable to work [] Unable to attend presybeterian [] Unable to walk/stand [] Unable to read [] Unable to drive [] Unable to eat/drink [] Unable to sleep [] Unable to be with family [] Patient intubated [] Other: Summary Time spent with patient 10 min
--- NOTE | 2024-03-30 10:39 | PC.SOCIAL ---
IMM Updated Updated pt on IMM. No questions voiced. Provided pt a copy. Initialed, dated, & timed a copy & placed in chart.
--- NOTE | 2024-03-30 11:05 | PM.DCS ---
Discharge Providers Date of Admission: 03/27/24 17:46 Date of Discharge: March 30, 2024 Attending Provider at Admission: Frankie Yap MD Attending Provider at Discharge: Frankie Yap MD Primary Care Provider: SOFIYA Valentino Diagnoses at Discharge Discharge Diagnosis (1) Cellulitis of leg: Status: Acute Reason for Visit Reason for Visit: left leg swelling Hospital Course Hospital Course Eva Pablo is a 69 year old female with a past medical history of ovarian cancer, hypothyroidism, who presents [facility] due to left lower extremity swelling, erythema, tenderness. Patient tells me that over the weekend she had the flu she was quite sick and remained bedbound, she tells me that she got better from the flu, but she started developing swelling and erythema of her left lower extremity. She saw her primary care provider who ordered a venous ultrasound which was negative for DVT, but there was concerns for cellulitis she was put on Bactrim. Despite this she started developing left lower extremity erythema, swelling, tenderness extending from the midfoot all the way up to now her knee with areas of streaking up to the knee, she does have a area of psoriasis on the dorsal aspect of the foot, that is pruritic, with a couple of breaks in the skin, denies any animal bites, denies any bug bites, no fevers, no chills Patient was concern for cellulitis of the left leg, received IV antibiotics, venous ultrasound negative for DVT, overall clinically improved, area of erythema/swelling has significantly improved, discharged on doxycycline, with close follow-up with primary care provider as outpatient Physical Exam Const: COMMON NORMALS: no acute distress and patient oriented x3 Resp: COMMON NORMALS: normal respiratory effort, No retractions, No use of accessory muscles and clear to auscultation bilaterally AUSCULTATION: clear to auscultation bilaterally Cardio: COMMON NORMALS: regular rate, regular rhythm, S1 normal heart sound present and S2 normal heart sound present RATE: regular rate RHYTHM: regular rhythm HEART SOUNDS: S1 normal heart sound present and S2 normal heart sound present GI: COMMON NORMALS: Normal to inspection, nondistended, normoactive bowel sounds present and non-tender Extremity: COMMON NORMALS: no pedal edema Neuro: COMMON NORMALS: patient oriented x3 Psych: COMMON NORMALS: mental status grossly normal Discharge Data Studies Completed and Pending Completed Studies During Hospitalization Category Date Time Status XR tibia fibula LT 2V [id number] Stat Exams 03/27/24 17:36 [place] [id number] Stat Ultrasound 03/27/24 17:36 Completed Pending at discharge Category Date Time Status Blood Culture Stat Lab 03/27/24 18:17 Results Radiology Impressions Tibia/Fibula X-Ray 03/27/24 17:36 IMPRESSION: Soft tissue swelling around the distal leg and ankle due to bland edema or cellulitis. Venous Duplex 03/27/24 17:36 IMPRESSION: No evidence of deep vein thrombosis. Laboratory Results WBC 5.44 10^3/uL (3.29-11.43) 03/30/24 04:56 RBC 3.75 10^6/uL (3.85-5.65) L 03/30/24 04:56 Hgb 11.00 g/dL (11.27-16.99) L 03/30/24 04:56 Hct 35.0 % (36-47) L 03/30/24 04:56 MCV 93.3 fl (85-98) 03/30/24 04:56 MCH 29.3 pg (27-33) 03/30/24 04:56 MCHC 31.4 g/dL (30-55) 03/30/24 04:56 RDW 13.2 % (12.1-15.1) 03/30/24 04:56 Plt Count 282 10^3/cmm (157-399) 03/30/24 04:56 MPV 9.2 fL (7.4-10.4) 03/30/24 04:56 Neut % (Auto) 72.3 % 03/30/24 04:56 Lymph % (Auto) 13.1 % 03/30/24 04:56 [place] % (Auto) 8.5 % 03/30/24 04:56 Eos % (Auto) 2.2 % 03/30/24 04:56 Baso % (Auto) 0.6 % 03/30/24 04:56 Neut # (Auto) 3.94 10^3/uL (1.8-7.7) 03/30/24 04:56 Lymph # (Auto) 0.7 10^3/uL (0.8-4.8) L 03/30/24 04:56 [place] # (Auto) 0.5 10^3/uL (0.2-0.9) 03/30/24 04:56 Eos # (Auto) 0.1 10^3/uL (0.0-0.8) 03/30/24 04:56 Baso # (Auto) 0.0 10^3/uL (0.0-0.1) 03/30/24 04:56 Nucleated RBC % (auto) 0 % 03/30/24 04:56 Nucleated RBCs # 0.0 /100WBC 03/30/24 04:56 ESR 8 mm/hr (0-15) 03/27/24 16:44 Sodium 144 mmol/L (136-145) 03/30/24 04:56 Potassium 4.8 mmol/L (3.5-5.1) 03/30/24 04:56 Chloride 108 mmol/L (98-107) H 03/30/24 04:56 Carbon Dioxide 27 mmol/L (22-29) 03/30/24 04:56 Anion Gap 13.8 (5-19) 03/30/24 04:56 BUN 8 mg/dL (8-23) 03/30/24 04:56 Creatinine 0.7 mg/dL (0.5-0.9) 03/30/24 04:56 GFR Calculation 83.0 mL/min (90-130) L 03/30/24 04:56 Glucose 112 mg/dL (65-115) 03/30/24 04:56 Estimat Average Glucose 103 03/27/24 16:44 Hemoglobin A1c 5.2 % (4.0-6.0) 03/27/24 16:44 Calculated Osmolality 297 mOsm/kg (285-295) H 03/30/24 04:56 Lactic Acid 1.2 mmol/L (0.5-2.2) 03/27/24 16:44 Calcium 9.4 mg/dL (8.5-10.5) 03/30/24 04:56 Total Bilirubin 0.3 mg/dL (0.15-1.2) 03/27/24 16:44 AST 26 U/L (0-32) 03/27/24 16:44 ALT 21 U/L (0-33) 03/27/24 16:44 Alkaline Phosphatase 113 U/L (35-105) H 03/27/24 16:44 C-Reactive Protein 98.0 mg/L (0.0-4.9) H 03/27/24 16:44 NT-Pro-B Natriuret Pep 159 pg/mL (0-125) H 03/27/24 16:44 Total Protein 7.3 g/dL (6.6-8.7) 03/27/24 16:44 Albumin 4.1 g/dL (3.5-5.2) 03/27/24 16:44 Globulin 3.2 g/dL (1.3-4.6) 03/27/24 16:44 Procalcitonin 0.07 ng/mL (0-0.5) 03/27/24 16:44 TSH 2.56 uIU/mL (0.27-4.20) 03/27/24 16:44 Vancomycin Trough 10.0 ug/mL (10-15) 03/29/24 04:36 Vitals Last Vital Signs Temp 98.4 F 03/30/24 07:44 Pulse 49 L 03/30/24 07:44 Resp 18 03/30/24 07:44 BP 93/59 03/30/24 07:44 Pulse Ox 97 03/30/24 07:44 O2 Del Method Room Air 03/30/24 07:44 Discharge Plan Discharge Patient Disposition: Home Condition: Stable Prescriptions: New doxycycline hyclate 100 mg tablet 100 mg PO BID 7 Days Qty: 14 0RF Continued tramadol 50 mg tablet 50 mg PO BID PRN (Reason: Pain) Rx Instructions: pharmacy has not filled since 06/2023 levothyroxine 88 mcg tablet 112 mcg PO DAILY alprazolam 0.25 mg tablet 0.5 mg PO TID PRN (Reason: Anxiety) gabapentin 300 mg capsule 300 mg PO DAILY duloxetine 30 mg capsule,delayed release(DR/EC) 60 mg PO DAILY atorvastatin 10 mg tablet 10 mg PO DAILY Discontinued sulfamethoxazole-trimethoprim 800-160 mg tablet 1 tab PO BID Discharge Orders: Discharge Order (Routine); Ordered 03/30/24 Ordered By: Frankie Yap Referrals: Acuña,Kristine, CLINICAL MICROBIOLOGIST [Primary Care Provider] - Discharge Diet: Cardiac Discharge Activity: Resume usual activity Patient Instructions: Opioid Safety Discharge Attestations Time Spent in Discharge Care*: greater than 30 min Quality Metrics Clinical Quality Measures [ No reported AMI, CVA or VTE this stay] Coding Level of Care Code Acute Code for Chg Fwd Diagnoses Cellulitis of leg L03.119
[2024-03-30 11:47] VITALS: BP 94/60; PULSE 58; O2SAT 98
== END 2024-03-30 11:49 | disposition home or self-care (01) | DRG 603 ==
LOC: ER 18:22 → MEDSURG 19:08
PROVIDERS: Emergency Medicine; Admitting Provider Family Medicine; Emergency Provider Physician Assistant; PCP Nurse Practitioner Family; Visit Provider Family Medicine
DX: L03.116 Cellulitis of left lower limb (principal); E03.9 Hypothyroidism, unspecified; L40.9 Psoriasis, unspecified; E78.00 Pure hypercholesterolemia, unspecified; Z90.710 Acquired absence of both cervix and uterus; Z90.722 Acquired absence of ovaries, bilateral; Z90.49 Acquired absence of other specified parts of digestive tract; Z79.891 Long term (current) use of opiate analgesic; Z85.43 Personal history of malignant neoplasm of ovary; Z80.0 Family history of malignant neoplasm of digestive organs; Z82.3 Family history of stroke; Z82.49 Family history of ischemic heart disease and other diseases of the circulatory system
CPT/HCPCS: 36415; 73590; 80048; 80053; 80202; 83036; 83605; 83880; 84145; 84443; 85025; 85651; 86140; 87040; 90471; 90686; 90732; 93971; 94664; 96365; 96366; 96367; 96372; 96375; 99285; J1650; J2470; J3370; J3490; J7050